=== PATIENT | male | born 1985 ===

== ENCOUNTER 2017-01-31 17:42 | Emergency (ER) | payer SELFPAY ==
[2017-01-31 17:53] VITALS: BP 139/77
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
[2017-01-31] MEDS ORDERED: ceFAZolin 2 GM in NACL 0.9% 100 ML IV ONE (19:26)
--- NOTE | 2017-02-01 08:45 | XRay Report ---
Left forearm: There is soft tissue laceration of the distal forearm. No foreign body noted and no underlying bone injury.
== END 2017-01-31 20:03 | disposition home or self-care (01) ==
LOC: ED 17:42
DX: S51.812A Laceration without foreign body of left forearm, initial encounter (principal); S54.02XA Injury of ulnar nerve at forearm level, left arm, initial encounter; W25.XXXA Contact with sharp glass, initial encounter; Y93.89 Activity, other specified; Y99.9 Unspecified external cause status; Y92.89 Other specified places as the place of occurrence of the external cause
CPT/HCPCS: 29125; 73090; 96365; 99283; J0690